=== PATIENT | female | born 1985 | race Caucasian/White ===

== ENCOUNTER 2019-01-14 21:39 | Emergency (ER) | payer MEDICAID ==
[~2019-01-14] VITALS: Ht 149.9 cm; Wt 53.5 kg
[2019-01-14 21:49] VITALS: BP 100/57; Ht 149.9 cm; Wt 53.5 kg
== END 2019-01-14 23:21 | disposition left against medical advice (07) ==
LOC: ED 21:39
DX: Z53.21 Procedure and treatment not carried out due to patient leaving prior to being seen by health care provider (principal)